=== PATIENT | female | born 1960 | race Caucasian/White ===

== ENCOUNTER 2016-07-28 08:48 | Emergency (ER) | payer OTHER | END 2016-07-28 14:05 | disposition home or self-care (01) | LOC: ER 08:48 | DX: C25.9 Malignant neoplasm of pancreas, unspecified (principal); C78.7 Secondary malignant neoplasm of liver and intrahepatic bile duct; Z87.891 Personal history of nicotine dependence; Z88.2 Allergy status to sulfonamides | CPT/HCPCS: 36415; 96374; 96375; 96376; J2550; Q9963; Q9967 ==